=== PATIENT | female | born 1990 | race Caucasian/White ===

== ENCOUNTER 2016-06-04 08:19 | Emergency (ER) | payer MEDICAID ==
[2016-06-04] MEDS ORDERED: SODIUM CHLORIDE 0.9% 1,000 ML IV ONE (08:42)
[2016-06-04] MEDS ORDERED: ONDANSETRON 4 MG/2 ML VIAL IVP STA (10:23)
[2016-06-04] MEDS ORDERED: LORazepam 2 MG/ML SYRINGE IVP STA (10:23)
[2016-06-04] MEDS ORDERED: ONDANSETRON 4 MG/2 ML VIAL ONE (10:37)
[2016-06-04] MEDS ORDERED: LORazepam 2 MG/ML SYRINGE ONE (10:37)
[2016-06-04] MEDS ORDERED: KETOROLAC 60 MG/2 ML VIAL IVP STA (11:09)
[2016-06-04] MEDS ORDERED: KETOROLAC 30 MG/ML VIAL ONE (11:11)
== END 2016-06-04 11:53 | disposition home or self-care (01) ==
DX: R10.84 Generalized abdominal pain (principal); F41.9 Anxiety disorder, unspecified; F45.9 Somatoform disorder, unspecified

== ENCOUNTER 2016-06-04 22:37 | Emergency (ER) | payer MEDICAID ==
[2016-06-04] MEDS ORDERED: ONDANSETRON ODT 4 MG TABLET TL STA (23:11)
[2016-06-04] MEDS ORDERED: ALPRAZolam 0.25 MG TABLET PO STA (23:11)
[2016-06-04] MEDS ORDERED: DICYCLOMINE 10 MG CAPSULE PO STA (23:11)
[2016-06-04] MEDS ORDERED: DICYCLOMINE 10 MG CAPSULE PO ONE (23:29)
[2016-06-04] MEDS ORDERED: ONDANSETRON ODT 4 MG TABLET ONE (23:29)
[2016-06-04] MEDS ORDERED: ALPRAZolam 0.25 MG TABLET PO ONE (23:29)
[2016-06-05] MEDS ORDERED: oxyCOD/ACETAMIN 5 MG/325 MG TABLET PO STA (00:59)
[2016-06-05] MEDS ORDERED: oxyCOD/ACETAMIN 5 MG/325 MG TABLET PO ONE (01:23)
== END 2016-06-05 01:27 | disposition home or self-care (01) ==
DX: F43.9 Reaction to severe stress, unspecified (principal); R10.84 Generalized abdominal pain; R11.2 Nausea with vomiting, unspecified; F41.9 Anxiety disorder, unspecified; F45.9 Somatoform disorder, unspecified
CPT/HCPCS: 36415; 71020; 80053; 81001; 81025; 83690; 85025; 96374; 96375; 99283; 99284; A9270; J2060; Q0162

== ENCOUNTER 2016-08-11 06:40 | Emergency (ER) | payer MEDICAID ==
--- NOTE | 2016-08-11 07:20 | ED Physician Documentation ---
PD HPI ABD PAIN - Stated complaint Stated Complaint: PANIC ATTACK - Chief complaint Chief Complaint: Abd Pain - History obtained from History obtained from: Patient - History of Present Illness Timing - onset: How many days ago (2-3 days of upper abd pain, worse with eating , much worse today. Triggered anxiety reaction too, per patient.) Timing - duration: Days (1-2) Timing - details: Gradual onset, Still present, Waxing and waning Quality: Aching, Sharp, Pain Location: Epigastric Radiation: Upper back Improved by: Eating. No: Vomiting Worsened by: Palpation. No: Eating, Breathing, Position Associated symptoms: Nausea, Vomiting, Loss of appetite. 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 denies: Near syncope PD PAST MEDICAL HISTORY - Past Medical History Cardiovascular: None Respiratory: None Neuro: None Endocrine/Autoimmune: None GI: Other (gastritis) Psych: Anxiety - Past Surgical History Past Surgical History: No - Present Medications Home Medications: Ambulatory Orders Medication Instructions Recorded Confirmed Albuterol 1 puffs PO DAILY 06/04/16 06/04/16 Benzonatate [Tessalon] 100 mg PO DAILY 06/04/16 06/04/16 LORazepam [Ativan] 0.5 mg PO Q6H PRN #10 tablet 06/04/16 06/04/16 Ondansetron Odt [Zofran] 4 mg TL Q6H PRN #10 tablet 06/04/16 06/04/16 hydrOXYzine PAMOATE [Vistaril] 25 mg PO DAILY 06/04/16 06/04/16 predniSONE [Deltasone] 20 mg PO DAILY 06/04/16 06/04/16 Dicyclomine [Bentyl] 10 mg PO Q8H PRN #12 capsule 06/05/16 Lansoprazole [Prevacid] 15 mg PO DAILY #30 capsule 04/03/17 Lorazepam [Ativan] 1 mg PO BID PRN #12 tablet 08/11/16 Sucralfate 1 gm PO QID #40 tablet 08/11/16 Tramadol HCl 50 mg PO Q6H PRN #20 tablet 08/11/16 - Allergies Allergies/Adverse Reactions: Allergies Allergy/AdvReac Type Severity Reaction Status Date / Time narcotics AdvReac Nausea Uncoded 01/21/16 04:59 - Social History Does the pt smoke?: No Smoking Status: Never smoker Does the pt drink ETOH?: No Does the pt have substance abuse?: Yes - Immunizations Immunizations are current?: Yes - POLST Patient has POLST: No PD ED PE NORMAL - Vitals Vital signs reviewed: Yes - General General: Alert and oriented X 3, No acute distress, Well developed/nourished, Other (very anxious, screaming and yelling. ) - HEENT HEENT: PERRL (nonicteric) - Neck Neck: Supple, no meningeal sign, No adenopathy - Cardiac Cardiac: RRR, No murmur - Respiratory Respiratory: Clear bilaterally - Abdomen Abdomen: Normal bowel sounds, Non distended, No organomegaly, Other (epigastric tenderness without guarding. ) - Female Female : Deferred - Back Back: No CVA TTP - Derm Derm: Normal color, Warm and dry, No rash - Neuro Neuro: Alert and oriented X 3, No motor deficit, Normal speech - Psych Psych: Normal affect (anxious) Results - Vitals Vitals: Vital Signs - 24 hr 08/11/16 08/11/16 08/11/16 06:49 09:56 11:39 Temperature 35.9 C L 36.3 C L Heart Rate 101 H 103 H Respiratory 22 16 18 Rate Blood Pressure 151/101 H 137/94 H 119/90 H O2 Saturation 100 100 96 Oxygen O2 Source Room air - Labs Labs: Laboratory Tests 08/11/16 08/11/16 08/11/16 07:55 07:55 07:55 WBC 9.7 RBC 4.33 Hgb 13.9 Hct 40.4 MCV 93.4 MCH 32.1 H MCHC 34.4 RDW 13.2 Plt Count 251 MPV 9.1 Neut # 8.0 H Lymph # 0.7 L [place] # 0.6 Eos # 0.3 Baso # 0.1 Absolute Nucleated RBC 0.00 Nucleated RBCs 0.0 Sodium 140 Potassium 4.2 Chloride 105 Carbon Dioxide 28 Anion Gap 7.0 BUN 10 Creatinine 0.7 Estimated GFR (MDRD) 101 Glucose 138 H Calcium 9.8 Total Bilirubin 1.0 AST 22 ALT 22 Alkaline Phosphatase 68 Total Protein 8.0 Albumin 4.9 Globulin 3.1 Albumin/Globulin Ratio 1.6 Lipase 17 L H. pylori IgG Antibody Negative PD MEDICAL DECISION MAKING - ED course Complexity details: reviewed results, re-evaluated patient (subsequently more calm and nausea improved so not vomiting. Feeling able to go home. Will change/ augment PPI and add sucralfate. H.Pylori negative. ), considered differential ( significant anxiety, screaming and yelling, but not to lose sight of the underlying issue of her epigastric pain. This sounds likely gastritis, with some improvement on GI cocktail. Given meds for anxiety, nausea. She prefers not to have narcotic pain meds as makes her feel bad, so yeah avoided those. ), d/w patient Departure - Departure Disposition: 01 Home, Self Care Clinical Impression: Epigastric abdominal pain Condition: Stable Record reviewed to determine appropriate education?: Yes Instructions: ED PUD Vs Gastritis, ED Panic Attack Follow-Up: Aleah Barclay DO [Primary Care Provider] - Prescriptions: Lorazepam [Ativan] 1 mg PO BID PRN #12 tablet PRN Reason: Anxiety Lansoprazole [Prevacid] 15 mg PO DAILY #30 capsule Sucralfate 1 gm PO QID #40 tablet Tramadol HCl 50 mg PO Q6H PRN #20 tablet PRN Reason: Pain Comments: Change to pantoprazole for stomach acid reduction. Sucralfate to coat the stomach. Tylenol or Tramadol for pains. Ativan if needed for anxiety short term. Follow up PCP later this week, call for appt. Discharge Date/Time: 08/11/16 11:41
[2016-08-11] MEDS ORDERED: MAG HYDROX/AL HYDROX/SIMETH 30 ML UDC ONE (07:43)
[2016-08-11] MEDS ORDERED: LIDOCAINE VISCOUS 2% 15 ML UDC MM ONE (07:43)
[2016-08-11] MEDS ORDERED: ONDANSETRON 4 MG/2 ML VIAL ONE ×2 (07:43→10:59)
[2016-08-11] MEDS ORDERED: LORazepam 2 MG/ML SYRINGE ONE ×2 (07:47→10:59)
[2016-08-11] MEDS: LORazepam 2 MG/ML SYRINGE IVP STA ×2 (07:57→11:03)
[2016-08-11] MEDS: ONDANSETRON 4 MG/2 ML VIAL IVP STA ×2 (07:57→11:03)
[2016-08-11] MEDS: MAG HYDROX/AL HYDROX/SIMETH 30 ML UDC PO STA (07:59)
[2016-08-11] MEDS: LIDOCAINE VISCOUS 2% 15 ML UDC MM STA (07:59)
[2016-08-11] MEDS: SODIUM CHLORIDE 0.9% 1,000 ML IV ONE (08:00)
[2016-08-11 08:16] LABS: BASOPHILS # (AUTO) 0.1 10^3/uL (0.0-0.1); EOSINOPHILS # (AUTO) 0.3 10^3/uL (0.0-0.7); EOSINOPHILS % (AUTO) 2.8 %; HCT - HEMATOCRIT 40.4 % (37.0-47.0); HGB - HEMOGLOBIN 13.9 g/dL (12.0-16.0); LYMPHOCYTES # (AUTO) 0.7 10^3/uL (1.5-3.5); LYMPHOCYTES % (AUTO) 7.7 %; MEAN CORPUSCULAR HEMOGLOBIN 32.1 pg (27.0-31.0); MEAN CORPUSCULAR HGB CONC 34.4 g/dL (32.0-36.0); MEAN CORPUSCULAR VOLUME 93.4 fL (81.0-99.0); MEAN PLATELET VOLUME 9.1 fL (7.9-10.8); MONOCYTES # (AUTO) 0.6 10^3/uL (0.0-1.0); MONOCYTES % (AUTO) 5.8 %; NEUTROPHILS % (AUTO) 82.7 %; RED BLOOD COUNT 4.33 10^6/uL (4.20-5.40); RED CELL DISTRIBUTION WIDTH 13.2 % (12.0-15.0); UNCORRECTED WHITE BLOOD COUNT 9.7 x10^3/uL; WHITE BLOOD COUNT 9.7 x10^3/uL (4.8-10.8)
[2016-08-11 08:28] LABS: ALBUMIN/GLOBULIN RATIO 1.6 (1.0-2.2); CALCIUM 9.8 mg/dL (8.5-10.3); CREATININE 0.7 mg/dL (0.4-1.0); POTASSIUM 4.2 mmol/L (3.5-5.0)
[2016-08-11 08:30] LABS: H. PYLORI IGG ANTIBODY Negative (Negative); HPYLORI NEG QC Negative (Negative); HPYLORI POS QC POSITIVE (Positive)
[2016-08-11] MEDS ORDERED: ACETAMINOPHEN 1,000 MG/100 ML 100 ML IV ONE (08:37)
[2016-08-11] MEDS ORDERED: FAMOTIDINE 20 MG/50 ML 50 ML IV ONE (08:37)
[2016-08-11] MEDS: FAMOTIDINE 20 MG/50 ML 50 ML IV ONE (08:40)
[2016-08-11] MEDS ORDERED: SUCRALFATE 1 GM/10 ML UDC ONE (09:06)
[2016-08-11] MEDS: SUCRALFATE 1 GM/10 ML UDC PO STA (09:08)
[2016-08-11] MEDS: ACETAMINOPHEN 1,000 MG/100 ML 100 ML IV STA (09:08)
[2016-08-11] MEDS ORDERED: PROMETHAZINE 25 MG/1 ML VIAL ONE (10:14)
[2016-08-11] MEDS ORDERED: KETOROLAC 60 MG/2 ML VIAL ONE (10:14)
[2016-08-11] MEDS: KETOROLAC 60 MG/2 ML VIAL IVP STA (10:19)
[2016-08-11] MEDS: PROMETHAZINE INJ 12.5 MG in SODIUM CHLORIDE 0.9% 50 ML IV STA (10:20)
[2016-08-11 11:40] VITALS: BP 119/90
== END 2016-08-11 11:41 | disposition home or self-care (01) ==
LOC: ED 06:40
DX: R10.13 Epigastric pain (principal); F41.9 Anxiety disorder, unspecified
CPT/HCPCS: 36415; 80053; 83690; 85025; 87339; 96361; 96374; 96375; 96376; 99283; 99284

== ENCOUNTER 2016-11-04 16:09 | Emergency (ER) | payer MEDICAID ==
[2016-11-04 16:17] VITALS: BP 157/107
[2016-11-04 16:28] LABS: BILIRUBIN,URINE NEGATIVE (NEGATIVE); PH,URINE 5.5 PH (5.0-7.5); UA CHARGE (STRIP ONLY) YES; UR CULTURE IF IND NOT INDICATED
[2016-11-04 16:29] LABS: HCG UR QUAL NEGATIVE
[2016-11-04] MEDS ORDERED: HALOPERIDOL 5 MG/ML VIAL IVP ONE ×2 (16:36→16:40)
[2016-11-04] MEDS ORDERED: SODIUM CHLORIDE 0.9% 1,000 ML IV ONE (16:36)
[2016-11-04] MEDS ORDERED: HALOPERIDOL 5 MG/ML VIAL ONE (16:38)
--- NOTE | 2016-11-04 16:43 | ED Physician Documentation ---
PD HPI NVD - Stated complaint Stated Complaint: N/V/STOMACH CRAMPS - Chief complaint Chief Complaint: Abd Pain - History obtained from History obtained from: Patient - History of Present Illness Timing - onset: Today Timing - duration: Hours Timing - details: Gradual onset, Still present Associated symptoms: Abdominal pain, Loss of appetite Contributing factors: Other (uses canabis and does get in the shower to relieve symptoms.l) Improved by: Vomiting Similar symptoms before: Diagnosis (gastritis) Recently seen: Emergency Dept (Seen about 2 months ago with similar.) - Additonal information Additional information: 25 y/o female with acute nausea and vomiting with abdominal pain has had similar episodes frequently and she notes that today she got into the shower to relieve her symptoms and yes she does admit to canabis intake. Review of Systems Constitutional: reports: Fatigue. denies: Fever, Chills Eyes: denies: Decreased vision Ears: denies: Ear pain Nose: reports: Congestion Throat: denies: Sore throat Cardiac: denies: Chest pain / pressure, Palpitations Respiratory: denies: Dyspnea, Cough GI: reports: Abdominal Pain, Nausea, Vomiting : denies: Dysuria, Frequency Skin: denies: Rash, Lesions Musculoskeletal: denies: Neck pain, Back pain Neurologic: denies: Generalized weakness, Focal weakness, Numbness Psychiatric: reports: Anxiety, Insomnia PD PAST MEDICAL HISTORY - Past Medical History Past Medical History: Yes Cardiovascular: None Respiratory: None Neuro: None Endocrine/Autoimmune: None GI: Other Psych: Anxiety - Past Surgical History Past Surgical History: No - Present Medications Home Medications: Ambulatory Orders Medication Instructions Recorded Confirmed No Known Home Medications [No 11/04/16 11/04/16 Known Home Medications] - Allergies Allergies/Adverse Reactions: Allergies Allergy/AdvReac Type Severity Reaction Status Date / Time narcotics AdvReac Nausea Uncoded 01/21/16 04:59 - Social History Does the pt smoke?: No Smoking Status: Never smoker Does the pt drink ETOH?: No Does the pt have substance abuse?: Yes - Immunizations Immunizations are current?: Yes - POLST Patient has POLST: No PD ED PE NORMAL - Vitals Vital signs reviewed: Yes (Hypertensive and tachycardic) - General General: Alert and oriented X 3, Well developed/nourished, Other (The patient is crying loudly and scromicing. She appears anxious) - HEENT HEENT: Atraumatic, PERRL, EOMI, Ears normal, Other (dry mucous membranes) - Neck Neck: Supple, no meningeal sign, No bony TTP - Cardiac Cardiac: No murmur, Other (tachy to 100) - Respiratory Respiratory: No respiratory distress, Clear bilaterally - Abdomen Abdomen: Soft, Non tender - Back Back: No CVA TTP, No spinal TTP - Derm Derm: Normal color, Warm and dry, No rash - Extremities Extremities: No deformity, No edema - Neuro Neuro: No motor deficit, No sensory deficit - Psych Psych: Other (mood is helpless and the affect is labile ) Results - Vitals Vitals: Vital Signs - 24 hr 11/04/16 16:13 Temperature 37.2 C Heart Rate 107 H Respiratory 18 Rate Blood Pressure 157/107 H O2 Saturation 97 Oxygen O2 Source Room air - Labs Labs: Laboratory Tests 11/04/16 11/04/16 16:20 16:20 Urine Color YELLOW Urine Clarity CLEAR Urine pH 5.5 Ur Specific [place] >=1.030 H >=1.030 H Urine Protein NEGATIVE Urine Glucose (UA) NEGATIVE Urine Ketones TRACE Urine Occult Blood NEGATIVE Urine Nitrite NEGATIVE Urine Bilirubin NEGATIVE Urine Urobilinogen 0.2 (NORMAL) Ur Leukocyte Esterase NEGATIVE Ur Microscopic Review NOT INDICATED Urine Culture Comments NOT INDICATED Urine HCG, Qual NEGATIVE Procedures - IVC sono (time) 1615 Bedside IVC sono: IVC measures (cm) (1.48), IVC collapsed c insp (cm) (complete) , Dehydration (mild) PD MEDICAL DECISION MAKING - ED course Complexity details: reviewed old records, reviewed results, re-evaluated patient , considered differential, d/w patient ED course: 25 y/o female with dramatic vomiting and crying has a history of recurrent vomiting and she admits to both bathing to relieve symptoms and use of cannabis. She knows about this syndrome but did not feel this had anything to do with this. She reports significant stress with her living situation and relationship and presents with overwhelming anxiety. Her complaints are abdominal pain and vomiting. Here in the ED I strongly suspected cannabis hyper emesis and the patient was mildly dehydrated. An IV was started and she was given haldol 2mg IV. She did not feel this helped but her vomiting resolved and she pulled her IV out and left the ED against medical advice. She actually eloped. Departure - Departure Disposition: Against Medical Advice Clinical Impression: Cannabinoid hyperemesis syndrome Condition: Stable
[2016-11-04] MEDS ORDERED: LORazepam 2 MG/ML SYRINGE ONE (17:08)
[2016-11-04] MEDS ORDERED: ONDANSETRON 4 MG/2 ML VIAL ONE (17:08)
[2016-11-04] MEDS ORDERED: LORazepam 2 MG/ML SYRINGE IVP STA (17:09)
[2016-11-04] MEDS ORDERED: ONDANSETRON 4 MG/2 ML VIAL IVP STA (17:09)
== END 2016-11-04 17:26 | disposition left against medical advice (07) ==
LOC: ED 16:09
DX: R11.2 Nausea with vomiting, unspecified (principal); F12.10 Cannabis abuse, uncomplicated
CPT/HCPCS: 81001; 81003; 81025; 87086; 96361; 96374; 99283; 99284